=== PATIENT | female | born 1975 | race Caucasian/White ===

== ENCOUNTER → 2016-05-26 10:58 | Outpatient (CLI) | payer MEDICAID ==
[2016-01-18 09:17] VITALS: BMI 27.8
[~2016-05-26 10:58] MED LIST: ADDERALL 20 MG20 M1 PO; ADVIL PM CAPLET1 TAB PO; AMBIEN10 MG PO; DESERYL100 MG PO; HYDROCODONE-APA1 TAB PO; KLONOPIN1 MG PO; LEVAQUIN500 MG PO; MELATONIN 3 MG1 TAB PO; NICODERM C1 PATCH .2 TRANSDERM; OMEPRAZOLE40 MG PO; PERCOCET 10/3251 TA1 PO; PROZAC20 MG PO; XANAX1 MG PO
[2016-05-26 11:08] LABS: HCG SERUM NEGATIVE (NEGATIVE); HCG URINE NEGATIVE (NEGATIVE)
== END | disposition home or self-care (01) ==
LOC: D.LABREF 10:58
PROVIDERS: Internal Medicine Hematology & Oncology
DX: Z32.00 Encounter for pregnancy test, result unknown (principal)

== ENCOUNTER 2016-10-12 14:24 | Emergency (ER) | payer MEDICAID ==
[2016-01-18 09:17] VITALS: BMI 27.8
[2016-10-12 15:04] LABS: BASOPHILS 0.3 % (0-2); EOSINOPHILS 1.1 % (0-7); HEMATOCRIT 39.5 % (36.0-48.0); HEMOGLOBIN 13.5 g/dL (12-16); IMMATURE GRANULOCYTES 0.3 % (0-5); LYMPHOCYTES 15.8 % (15-50); MCH 31.5 pg (26.0-34.0); MCHC 34.2 g/dL (31.0-37.0); MCV 92.3 fL (80.0-100.0); MEAN PLATELET VOLUME 9.6 fL (7.4-10.4); MONOCYTES 8.7 % (2-11); NEUTROPHILS 73.8 % (40-80); PLATELET COUNT 226 10x3/uL (130-400); RBC 4.28 10x6/uL (4.00-5.40); RDW 12.6 % (11.5-14.5); WBC 7.5 10x3/uL (4.8-10.8)
[2016-10-12 15:12] LABS: APPEARANCE CLOUDY (CLEAR); BILIRUBIN NEGATIVE (NEGATIVE); COLOR DK YELLOW (YELLOW); GLUCOSE NEGATIVE (NEGATIVE); KETONE NEGATIVE (NEGATIVE); LEUKOCYTE ESTERASE NEGATIVE (NEGATIVE); NITRITE NEGATIVE (NEGATIVE); PROTEIN NEGATIVE (NEGATIVE); UROBILINOGEN NORMAL (NORMAL)
[2016-10-12 15:18] LABS: UDS - AMPHET NEGATIVE QUAL (NEGATIVE); UDS - BARB NEGATIVE QUAL (NEGATIVE); UDS - BENZO POSITIVE QUAL (NEGATIVE); UDS - COCAINE NEGATIVE QUAL (NEGATIVE); UDS - METH NEGATIVE QUAL (NEGATIVE); UDS - OPIATE NEGATIVE QUAL (NEGATIVE); UDS - PCP NEGATIVE QUAL (NEGATIVE); UDS - THC POSITIVE QUAL (NEGATIVE)
[2016-10-12 15:19] LABS: ALBUMIN 4.1 g/dL (3.4-5.0); ANION GAP 14.2 mmol/L (8-16); BILIRUBIN - TOTAL 0.3 mg/dL (0.2-1.3); CALCIUM 9.3 mg/dL (8.5-10.1); CARBON DIOXIDE 28.4 mmol/L (21.0-32.0); CREATININE - SERUM 1.2 mg/dL (0.6-1.3); POTASSIUM - SERUM 3.6 mmol/L (3.5-5.1); PROTEIN - SERUM 7.7 g/dL (6.4-8.2)
== END 2016-10-12 17:04 | disposition home or self-care (01) ==
LOC: D.ER 14:24
PROVIDERS: Emergency Medicine
DX: Z86.59 Personal history of other mental and behavioral disorders (principal); Z85.118 Personal history of other malignant neoplasm of bronchus and lung; F17.200 Nicotine dependence, unspecified, uncomplicated

== ENCOUNTER 2016-10-14 08:23 | Emergency (ER) | payer MEDICAID ==
[2016-01-18 09:17] VITALS: BMI 27.8
[2016-10-14 08:56] LABS: BASOPHILS 0.2 % (0-2); EOSINOPHILS 2.3 % (0-7); HEMATOCRIT 35.8 % (36.0-48.0); HEMOGLOBIN 12.1 g/dL (12-16); IMMATURE GRANULOCYTES 0.2 % (0-5); LYMPHOCYTES 21.2 % (15-50); MCH 31.3 pg (26.0-34.0); MCHC 33.8 g/dL (31.0-37.0); MCV 92.7 fL (80.0-100.0); MONOCYTES 7.5 % (2-11); NEUTROPHILS 68.6 % (40-80); PLATELET COUNT 191 10x3/uL (130-400); RBC 3.86 10x6/uL (4.00-5.40); RDW 12.7 % (11.5-14.5)
[2016-10-14 09:07] LABS: WBC 4.8 10x3/uL (4.8-10.8)
[2016-10-14 09:15] LABS: ALBUMIN 3.8 g/dL (3.4-5.0); ANION GAP 12.6 mmol/L (8-16); BILIRUBIN - TOTAL 0.21 mg/dL (0.2-1.3); CARBON DIOXIDE 26.5 mmol/L (21.0-32.0); CREATININE - SERUM 0.9 mg/dL (0.6-1.3); POTASSIUM - SERUM 4.1 mmol/L (3.5-5.1); PROTEIN - SERUM 7.3 g/dL (6.4-8.2)
== END 2016-10-14 13:01 | disposition home or self-care (01) ==
LOC: D.ER 08:23
PROVIDERS: Family Medicine
DX: S06.0X0A Concussion without loss of consciousness, initial encounter (principal); X58.XXXA Exposure to other specified factors, initial encounter; Y93.89 Activity, other specified; Y92.89 Other specified places as the place of occurrence of the external cause

== ENCOUNTER 2017-08-06 07:05 | Day surgery (SDC) | payer MEDICAID ==
[2017-08-04 16:30] LABS: BASOPHILS 0.3 % (0-2); EOSINOPHILS 1.2 % (0-7); HEMATOCRIT 37.7 % (36.0-48.0); HEMOGLOBIN 12.6 g/dL (12-16); IMMATURE GRANULOCYTES 0.1 % (0-5); LYMPHOCYTES 18.3 % (15-50); MCH 30.8 pg (26.0-34.0); MCHC 33.4 g/dL (31.0-37.0); MCV 92.2 fL (80.0-100.0); MEAN PLATELET VOLUME 9.9 fL (7.4-10.4); NEUTROPHILS 75.1 % (40-80); RBC 4.09 10x6/uL (4.00-5.40); RDW 12.8 % (11.5-14.5); WBC 7.2 10x3/uL (4.8-10.8)
[2017-08-04 16:33] LABS: PLATELET COUNT 249 10x3/uL (130-400)
[~2017-08-06] VITALS: Ht 152.4 cm; Wt 70.3 kg
--- NOTE | ~2017-08-06 | OP ---
PATIENT NAME: KATHLEEN MENDOZA MEDICAL RECORD: [id number] :71 LOCATION:D.OPS ADMISSION DATE: SURGEON: MEG SAL MD DATE OF OPERATION: 08/06/2017 PREOPERATIVE DIAGNOSES: Menorrhagia and fibroids. POSTOPERATIVE DIAGNOSES: Menorrhagia and fibroids. PROCEDURE: Hysteroscopy, D&C. SURGEON: Meg Sal MD ESTIMATED BLOOD LOSS: Minimal. INTRAVENOUS FLUIDS: Per anesthesia record. ANESTHESIA: General. HYSTEROSCOPIC FLUID LOSS: Less than 100 cc of 0.9 normal saline. SPECIMENS: Endometrial curettings. COMPLICATIONS: None apparent. FINDINGS: 1. Enlarged endometrial cavity with proliferative appearing endometrium. 2. Grossly normal appearing cervix and external genitalia. PROCEDURE: The patient taken to the operating room where general anesthesia was achieved without difficulty. The patient was then prepped and draped in normal sterile fashion in the dorsal lithotomy position in the [facility]. At this point, a Graves speculum was placed in the vagina and the cervix was identified, grasped on its anterior lip with a single-tooth tenaculum. Uterus was sounded to approximately 9-1/2 cm. At this point, the cervix was dilated to approximately 6 mm, at which point, the hysteroscope was introduced into the cervix. Survey of the endometrial canal was performed followed by curettage of all 4 quadrants of the uterus. The specimen was sent to pathology. The tenaculum was removed followed by the speculum. The patient tolerated the procedure well and was transferred to postanesthesia recovery stable without incident. TRANSINT:[id number] Voice Confirmation ID: [id number] DOCUMENT ID: [id number] MEG SAL MD at 1844 CC: [id number] DICTATION DATE: 08/07/172057 SENIOR APPLICATIONS ENGINEER: 08/07/17 2214 [facility] 08/06/[address] [address]
[~2017-08-06 07:05] MED LIST changes: +CHANTIX0.5 MG PO
[2017-08-06 08:14] LABS: APTT 32.2 SECONDS (22.8-39.4); INR 0.98 (0.85-1.17); PROTIME 12.6 SECONDS (11.6-15.0)
[2017-08-06 08:37] VITALS: BP 112/79; Ht 152.4 cm; Wt 70.3 kg
[2017-08-06 09:15] LABS: HCG URINE NEGATIVE (NEGATIVE)
== END 2017-08-06 13:00 | disposition home or self-care (01) ==
LOC: D.OPS 07:05 → D.PAN 10:30 → D.OPS 10:30
PROVIDERS: Obstetrics & Gynecology
DX: N92.0 Excessive and frequent menstruation with regular cycle (principal); D25.9 Leiomyoma of uterus, unspecified; Z01.812 Encounter for preprocedural laboratory examination

== ENCOUNTER → 2018-06-10 09:10 | Outpatient (CLI) | payer MEDICARE, MEDICAID ==
[2017-08-06 08:37] VITALS: BMI 31.5
== END | disposition home or self-care (01) ==
LOC: D.CT 09:10
PROVIDERS: ATTEND Internal Medicine Hematology & Oncology
DX: C34.12 Malignant neoplasm of upper lobe, left bronchus or lung (principal)

== ENCOUNTER 2018-07-08 11:12 | Emergency (ER) | payer MEDICARE, MEDICAID ==
[~2018-07-08] VITALS: Ht 152.4 cm; Wt 72.7 kg
[2018-07-08 11:16] VITALS: Ht 152.4 cm; Wt 72.7 kg
[2018-07-08] MEDS ORDERED: ZOFRAN4 MG PO (11:18)
[2018-07-08] MEDS ORDERED: PERCOCET 10-321 EAC1 PO (11:18)
[2018-07-08] MEDS ORDERED: ALBUTEROL SULF8.5 GM INH ×2 (11:19→13:49)
[2018-07-08] MEDS ORDERED: BUPROPION HCL150 M1 PO (11:19)
[2018-07-08 12:39] LABS: BASOPHILS 0.3 % (0-2); EOSINOPHILS 2.6 % (0-7); HEMATOCRIT 39.2 % (36.0-48.0); HEMOGLOBIN 13.6 g/dL (12-16); IMMATURE GRANULOCYTES 0.3 % (0-5); LYMPHOCYTES 12.5 % (15-50); MCH 30.8 pg (26.0-34.0); MCHC 34.7 g/dL (31.0-37.0); MCV 88.9 fL (80.0-100.0); MEAN PLATELET VOLUME 10.2 fL (7.4-10.4); MONOCYTES 6.3 % (2-11); PLATELET COUNT 258 10x3/uL (130-400); RBC 4.41 10x6/uL (4.00-5.40); RDW 12.5 % (11.5-14.5); WBC 10.9 10x3/uL (4.8-10.8)
[2018-07-08 12:55] LABS: ALKALINE PHOSPHATASE 73 U/L (46-116); ALT (SGPT) 20 U/L (10-68); CALC OSMOLALITY 279 mosm/kg (275-300); CALCIUM 9.3 mg/dL (8.5-10.1); CARBON DIOXIDE 21.5 mmol/L (21.0-32.0); CHLORIDE - SERUM 105 mmol/L (98-107); CREATININE - SERUM 0.7 mg/dL (0.6-1.3); GLUCOSE 110 mg/dL (74-106); POTASSIUM - SERUM 3.7 mmol/L (3.5-5.1); PROTEIN - SERUM 7.4 g/dL (6.4-8.2); SODIUM 140 mmol/L (136-145); UREA NITROGEN 13 mg/dL (7-18); eGFR NON AFRICAN AMERICAN > 90 mL/min (90-120)
[2018-07-08] MEDS ORDERED: VIBRAMYCIN 100100 MG PO (13:49)
[2018-07-08 14:18] VITALS: BP 146/84
[2018-07-09] MEDS ORDERED: PHENERGAN25 M1 PO (17:36)
[2018-07-09] MEDS ORDERED: PROTONIX40 MG PO (17:36)
== END 2018-07-08 14:19 | disposition home or self-care (01) ==
LOC: D.ER 11:12
PROVIDERS: Emergency Medicine
DX: R05 Cough (principal); J40 Bronchitis, not specified as acute or chronic; Z85.118 Personal history of other malignant neoplasm of bronchus and lung

== ENCOUNTER 2018-07-09 17:31 | Observation (INO) | payer MEDICARE ==
[~2018-07-09] VITALS: Ht 152.4 cm; Wt 75.0 kg
[~2018-07-09 17:31] MED LIST changes: +ALBUTEROL SULF8.5 GM INH; +BUPROPION HCL150 M1 PO; +PERCOCET 10-321 EAC1 PO; +VIBRAMYCIN 100100 MG PO; +ZOFRAN4 MG PO
[2018-07-09 17:34] VITALS: BP 94/74; Ht 152.4 cm; Wt 75.0 kg
[2018-07-09] MEDS ORDERED: PROTONIX40 MG PO (17:36)
[2018-07-09] MEDS ORDERED: PHENERGAN25 M1 PO (17:36)
--- NOTE | 2018-07-09 17:45 | NUR ---
CLONAZEPAM BOTTLE WITH PATIENT FILLED FOR NINETY (90) PILLS YESTERDAY (07/08/18) CURRENT COUNT IS 34 PILLS.
[2018-07-09 17:53] LABS: BASOPHILS 0.4 % (0-2); EOSINOPHILS 2.7 % (0-7); HEMATOCRIT 39.4 % (36.0-48.0); HEMOGLOBIN 13.6 g/dL (12-16); IMMATURE GRANULOCYTES 0.3 % (0-5); LYMPHOCYTES 19.3 % (15-50); MCHC 34.5 g/dL (31.0-37.0); MCV 89.7 fL (80.0-100.0); MEAN PLATELET VOLUME 10.6 fL (7.4-10.4); MONOCYTES 6.5 % (2-11); NEUTROPHILS 70.8 % (40-80); PLATELET COUNT 261 10x3/uL (130-400); RBC 4.39 10x6/uL (4.00-5.40); RDW 12.6 % (11.5-14.5); WBC 9.9 10x3/uL (4.8-10.8)
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
--- NOTE | 2018-07-09 18:03 | NUR ---
PATIENT'S SPOUSE IS IN THE WAITING ROOM AND STATES HE WANTS HIS MEDICATION. HIS ID WAS CHECKED AND VERIFIED AGAINST THE BOTTLE AND HE WAS GIVEN HIS PRESCRIPTION BACK.
[2018-07-09 18:08] LABS: ALBUMIN 3.8 g/dL (3.4-5.0); ALKALINE PHOSPHATASE 72 U/L (46-116); ALT (SGPT) 19 U/L (10-68); BILIRUBIN - TOTAL 0.24 mg/dL (0.2-1.3); CALC OSMOLALITY 283 mosm/kg (275-300); CALCIUM 9.1 mg/dL (8.5-10.1); CARBON DIOXIDE 24.8 mmol/L (21.0-32.0); CHLORIDE - SERUM 105 mmol/L (98-107); CREATININE - SERUM 0.7 mg/dL (0.6-1.3); GLUCOSE 108 mg/dL (74-106); POTASSIUM - SERUM 3.6 mmol/L (3.5-5.1); PROTEIN - SERUM 7.2 g/dL (6.4-8.2); SODIUM 141 mmol/L (136-145); eGFR NON AFRICAN AMERICAN > 90 mL/min (90-120)
[2018-07-09 18:09] LABS: UREA NITROGEN 18 mg/dL (7-18)
--- NOTE | 2018-07-09 18:53 | NUR ---
DR. DEVINE NOTIFIED OF PATIENTS BEHAVIOR AND ASSESSMENT RESULTS. PT IS A LOW RISK PER . DR. DEVINE STATED TO GIVE RESOURCES TO PT AT THE TIME OF DISCHARGE. NO FURTHER ORDERS GIVEN AT THIS TIME. RESOURCES REVIEWED WITH PT AND SHE VERBALIZED UNDERSTANDING. PT STATED "I SURVIVED CANCER. WHY WOULD I WANT TO ? I HAVE ALL KIND OF PAIN MEDICATION IF I WANTED TO KILL MYSELF. I HAVE KIDS TO LIVE FOR, I HAVE MY HOUSE TO LIVE FOR, MY GRANDKIDS. I JUST WANT TO KILL MY . THATS ALL. IM NOT SUICIDAL AT ALL."
[2018-07-09 18:59] LABS: UDS - AMPHET NEGATIVE QUAL (NEGATIVE); UDS - BARB NEGATIVE QUAL (NEGATIVE); UDS - BENZO POSITIVE QUAL (NEGATIVE); UDS - COCAINE NEGATIVE QUAL (NEGATIVE); UDS - OPIATE NEGATIVE QUAL (NEGATIVE); UDS - PCP NEGATIVE QUAL (NEGATIVE); UDS - THC NEGATIVE QUAL (NEGATIVE)
[2018-07-09 19:02] LABS: HCG URINE NEGATIVE (NEGATIVE)
[2018-07-09 19:03] LABS: APPEARANCE CLEAR (CLEAR); BILIRUBIN NEGATIVE (NEGATIVE); COLOR YELLOW (YELLOW); GLUCOSE NEGATIVE (NEGATIVE); KETONE NEGATIVE (NEGATIVE); NITRITE NEGATIVE (NEGATIVE); PROTEIN NEGATIVE (NEGATIVE); UROBILINOGEN NORMAL (NORMAL)
[2018-07-09 19:04] LABS: BACTERIA FEW /hpf (NONE SEEN); EPITHELIAL CELLS OCC /hpf (0-5); MUCUS <1+ /lpf (NONE SEEN); RED CELLS - URINE OCC /hpf (0-5); WHITE CELLS - URINE 0-5 /hpf (0-5)
--- NOTE | 2018-07-09 19:05 | NUR ---
BEDSIDE REPORT RECEIVED FROM CHRISTINA CHERY.
--- NOTE | 2018-07-09 19:12 | NUR ---
PT STATED SHE WANTS TO GO SMOKE A CIGARETTE, PT INFORMED SHE IS NOT ALLOWED TO GO OUTSIDE THE FACILITY TO SMOKE BUT I COULD REQUEST AN ORDER FOR A NICOTINE PATCH FROM THE EDP. PT THEN BECAME AGITATED STATED SHE IS GOING TO SMOKE, PT DISCONNECTED HERSELF FROM [facility] SIGN MONITOR, PULLED OUT HER IV, GOT OUT OF BED AND STARTED WALKING TOWARD THE DOOR. WHEN ATTEMPTING TO TALK TO PT TO CALM HER DOWN AND PUT GAUZE OVER PT'S IV SITE, PT BECAME COMBATIVE WITH NURSING STAFF.
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
--- NOTE | 2018-07-09 19:44 | NUR ---
SPOKE WITH CHRISTINA GEORGE AT THE LOCAL DETENTION, SHE WAS INFORMED OF THE PATIENT CONDITION AND QUESTIONED ABOUT THE ABILITY TO MONITOR AND SHE HAS THE CAPABILITY. DR ADAME ALSO SPOKE WITH HER AND INFORMED HER TO SEND THE PATIENT BACK TO THE ED IF SHE DEVELOPED EMERGENT SIGNS OF DISTRESS.
== END 2018-07-09 22:00 ==
LOC: D.ER 17:31 → D.ICU 19:11 → OBSVTIME 19:11 → D.ICU 19:11
PROVIDERS: Family Medicine; ADMIT Emergency Medicine; ATTEND Emergency Medicine
DX: T42.4X2A Poisoning by benzodiazepines, intentional self-harm, initial encounter (principal); R45.850 Homicidal ideations; K21.9 Gastro-esophageal reflux disease without esophagitis; F17.200 Nicotine dependence, unspecified, uncomplicated

== ENCOUNTER 2018-08-10 21:28 | Observation (INO) | payer MEDICARE ==
[~2018-08-10] VITALS: Ht 152.4 cm; Wt 77.3 kg
[~2018-08-10 21:28] MED LIST changes: +PHENERGAN25 M1 PO; +PROTONIX40 MG PO
[2018-08-10 22:08] LABS: BASOPHILS 0.3 % (0-2); EOSINOPHILS 1.3 % (0-7); HEMOGLOBIN 13.1 g/dL (12-16); IMMATURE GRANULOCYTES 0.3 % (0-5); LYMPHOCYTES 17.2 % (15-50); MCH 31.1 pg (26.0-34.0); MCHC 35.4 g/dL (31.0-37.0); MCV 87.9 fL (80.0-100.0); MEAN PLATELET VOLUME 9.9 fL (7.4-10.4); MONOCYTES 7.3 % (2-11); NEUTROPHILS 73.6 % (40-80); PLATELET COUNT 250 10x3/uL (130-400); RBC 4.21 10x6/uL (4.00-5.40); RDW 12.7 % (11.5-14.5); WBC 7.7 10x3/uL (4.8-10.8)
[2018-08-10 22:28] LABS: APTT 34.7 SECONDS (22.8-39.4); INR 1.05 (0.85-1.17); PROTIME 13.2 SECONDS (11.6-15.0)
[2018-08-10 22:36] LABS: ALBUMIN 3.8 g/dL (3.4-5.0); ALKALINE PHOSPHATASE 68 U/L (46-116); ALT (SGPT) 18 U/L (10-68); BILIRUBIN - TOTAL 0.24 mg/dL (0.2-1.3); CALC OSMOLALITY 279 mosm/kg (275-300); CALCIUM 8.9 mg/dL (8.5-10.1); CARBON DIOXIDE 21.4 mmol/L (21.0-32.0); CHLORIDE - SERUM 105 mmol/L (98-107); CREATININE - SERUM 0.8 mg/dL (0.6-1.3); GLUCOSE 99 mg/dL (74-106); POTASSIUM - SERUM 3.7 mmol/L (3.5-5.1); PROTEIN - SERUM 7.2 g/dL (6.4-8.2); SODIUM 141 mmol/L (136-145); UREA NITROGEN 11 mg/dL (7-18); eGFR NON AFRICAN AMERICAN 82 mL/min (90-120)
[2018-08-10 22:46] LABS: CKMB 0.7 U/L (0.0-3.6); CREATINE KINASE 110 UL (21-215); MAGNESIUM - SERUM 1.7 mg/dL (1.8-2.4)
[2018-08-10 22:54] LABS: TROPONIN-I < 0.017 ng/mL (0.000-0.060)
--- NOTE | 2018-08-10 23:38 | NUR ---
C-COLLAR CLEARED FROM REMOVAL. SANDWICH AND DRINK GIVEN TO PT.
--- NOTE | 2018-08-11 00:10 | NUR ---
URINE SENT WITH Barbara FROM LAB TO LAB
[2018-08-11 01:21] LABS: APPEARANCE CLEAR (CLEAR); BILIRUBIN NEGATIVE (NEGATIVE); COLOR YELLOW (YELLOW); GLUCOSE NEGATIVE (NEGATIVE); KETONE NEGATIVE (NEGATIVE); NITRITE NEGATIVE (NEGATIVE); PROTEIN NEGATIVE (NEGATIVE); SPECIFIC GRAVITY 1.015 (1.005-1.020); UROBILINOGEN NORMAL (NORMAL)
[2018-08-11 01:23] LABS: HCG URINE NEGATIVE (NEGATIVE)
[2018-08-11 01:34] LABS: UDS - AMPHET NEGATIVE QUAL (NEGATIVE); UDS - BARB NEGATIVE QUAL (NEGATIVE); UDS - BENZO NEGATIVE QUAL (NEGATIVE); UDS - COCAINE NEGATIVE QUAL (NEGATIVE); UDS - OPIATE NEGATIVE QUAL (NEGATIVE); UDS - PCP NEGATIVE QUAL (NEGATIVE); UDS - THC POSITIVE QUAL (NEGATIVE)
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
--- NOTE | 2018-08-11 02:46 | NUR ---
NS STOPPED WHEN PT TAKEN TO ROOM AT 0230
[2018-08-11 03:04] VITALS: BP 114/78; Ht 152.4 cm; Wt 77.3 kg
[2018-08-11 04:55] LABS: BASOPHILS 0.3 % (0-2); EOSINOPHILS 1.5 % (0-7); HEMOGLOBIN 12.5 g/dL (12-16); IMMATURE GRANULOCYTES 0.3 % (0-5); MCH 30.7 pg (26.0-34.0); MCHC 34.7 g/dL (31.0-37.0); MCV 88.5 fL (80.0-100.0); MEAN PLATELET VOLUME 10.6 fL (7.4-10.4); MONOCYTES 6.8 % (2-11); NEUTROPHILS 73.1 % (40-80); PLATELET COUNT 270 10x3/uL (130-400); RBC 4.07 10x6/uL (4.00-5.40); RDW 12.8 % (11.5-14.5)
[2018-08-11 05:01] LABS: WBC 11.2 10x3/uL (4.8-10.8)
[2018-08-11 05:10] LABS: ALBUMIN 3.6 g/dL (3.4-5.0); ALKALINE PHOSPHATASE 66 U/L (46-116); ALT (SGPT) 17 U/L (10-68); BILIRUBIN - TOTAL 0.28 mg/dL (0.2-1.3); CALC OSMOLALITY 281 mosm/kg (275-300); CALCIUM 8.6 mg/dL (8.5-10.1); CARBON DIOXIDE 25.9 mmol/L (21.0-32.0); CHLORIDE - SERUM 106 mmol/L (98-107); CREATININE - SERUM 0.8 mg/dL (0.6-1.3); GLUCOSE 99 mg/dL (74-106); POTASSIUM - SERUM 3.6 mmol/L (3.5-5.1); PROTEIN - SERUM 6.7 g/dL (6.4-8.2); SODIUM 142 mmol/L (136-145); UREA NITROGEN 11 mg/dL (7-18); eGFR NON AFRICAN AMERICAN 82 mL/min (90-120)
--- NOTE | 2018-08-11 07:46 | NUR ---
ALERT AND ORIENTED X 3. LUNGS CLEAR BILATERALLY IN ALL RENE. HEART SOUNDS S1 AND S2 HEARD IN ALL RENE. BOWEL SOUNDS ACTIVE X 4. SKIN INTACT WITHOUT REDNESS. BRUISING NOTED TO RIGHT EYE FROM FALL PRIOR TO ADMISSION. IV TO LEFT AC PATENT WITHOUT RENESS. REQUESTS PRN PAIN MEDICATION BUT NOT DUE UNTI 0830. EDUCATION PROVIDED. PATIENT VERBALIZED UNDERSTANDING. REQUESTED AND GIVEN ORANGE JUICE. DENIES FURTHER NEEDS. BED LOW. CALL KITCHEN AND PERSONAL ITEMS IN REACH. WILL CONTINUE TO MONITOR.
[2018-08-11 09:36] VITALS: BP 89/61
--- NOTE | 2018-08-11 12:33 | NUR ---
SITTING IN BED EATING LUNCH. DENIES NEEDS.
[2018-08-11 13:04] VITALS: BP 98/66
--- NOTE | 2018-08-11 15:00 | NUR ---
PATIENT LEFT FLOOR.
--- NOTE | 2018-08-11 15:58 | NUR ---
RETURNED TO ROOM .
[2018-08-11 17:43] VITALS: BP 110/65
--- NOTE | 2018-08-11 18:18 | NUR ---
RESTING IN BED. FAMILY AT BEDSIDE. DENIES NEEDS. BED LOW. CALL KITCHEN AND PERSONAL ITEMS IN REACH. WILL CONTINUE TO MONITOR.
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
[2018-08-11 21:00] VITALS: BP 118/61
[2018-08-12 00:46] VITALS: BP 122/68
--- NOTE | 2018-08-12 04:13 | NUR ---
I have reviewed this patient and I concur with the Shift Assessment completed by the Licensed Practical Nurse today this shift.
[2018-08-12 05:06] VITALS: BP 124/54
[2018-08-12 06:10] LABS: ANION GAP 10.6 mmol/L (8-16); CALCIUM 7.8 mg/dL (8.5-10.1); CARBON DIOXIDE 25.4 mmol/L (21.0-32.0); CREATININE - SERUM 0.9 mg/dL (0.6-1.3)
[2018-08-12 06:13] LABS: BASOPHILS 0.4 % (0-2); EOSINOPHILS 4.3 % (0-7); HEMATOCRIT 33.1 % (36.0-48.0); HEMOGLOBIN 10.8 g/dL (12-16); IMMATURE GRANULOCYTES 0.1 % (0-5); LYMPHOCYTES 29.2 % (15-50); MCH 29.7 pg (26.0-34.0); MCHC 32.6 g/dL (31.0-37.0); MEAN PLATELET VOLUME 10.4 fL (7.4-10.4); MONOCYTES 8.4 % (2-11); NEUTROPHILS 57.6 % (40-80); PLATELET COUNT 244 10x3/uL (130-400); RBC 3.64 10x6/uL (4.00-5.40); RDW 12.9 % (11.5-14.5)
[2018-08-12 06:31] LABS: MCV 90.9 fL (80.0-100.0); WBC 7.3 10x3/uL (4.8-10.8)
--- NOTE | 2018-08-12 07:38 | NUR ---
RESTING IN BED. ALERT AND ORIENTED X 3. LUNGS CLEAR BILATERALLY IN ALL RENE. HEART SOUNDS S1 AND S2 HEARD IN ALL RENE. BOWEL SOUNDS ACTIVE X 4. SKIN INTACT WITHOUT REDNESS. BRUISING NOTED TO RIGHT EYE FROM FALL PRIOR TO ADMISSION. DENIES NEEDS. BED LOW. CALL KITCHEN AND PERSONAL ITEMS IN REACH. WILL CONTINUE TO MONITOR.
[2018-08-12 08:30] VITALS: BP 133/80
--- NOTE | 2018-08-12 09:51 | NUR ---
DISCHARGE EDUCATION PROVIDED BOTH WRITTEN AND VERBAL. VERBALIZED UNDERSTANDING. DENIES FURTHER QUESTIONS. IV REMOVED FROM LEFT AC WITH TIP INTACT. DISCHARGED HOME WITH WITH ALL BELONGINGS.
== END 2018-08-12 09:58 | disposition home or self-care (01) ==
LOC: D.ER 21:28 → OBSVTIME 08-11 00:54 → D.MS 08-11 00:54
PROVIDERS: Family Medicine; ADMIT Internal Medicine Nephrology; ATTEND Internal Medicine Nephrology
DX: R56.9 Unspecified convulsions (principal); W19.XXXA Unspecified fall, initial encounter; F10.129 Alcohol abuse with intoxication, unspecified; Z85.118 Personal history of other malignant neoplasm of bronchus and lung; F17.203 Nicotine dependence unspecified, with withdrawal; S06.0X0A Concussion without loss of consciousness, initial encounter

== ENCOUNTER 2019-01-13 23:00 | Outpatient (CLI) | payer MEDICARE ==
[2018-08-11 03:04] VITALS: BMI 33.2
== END 2019-01-13 23:59 | disposition home or self-care (01) ==
LOC: D.MAMMO 23:00
PROVIDERS: ATTEND Family Medicine
DX: N63.21 Unspecified lump in the left breast, upper outer quadrant (principal)

== ENCOUNTER 2019-03-06 13:26 | Emergency (ER) | payer MEDICARE ==
[~2019-03-06] VITALS: Ht 152.4 cm; Wt 71.8 kg
[2019-03-06 13:34] VITALS: Ht 152.4 cm; Wt 71.8 kg
[2019-03-06] MEDS ORDERED: CLEOCIN HCL300 MG PO (14:30)
[2019-03-06] MEDS ORDERED: VOLTAREN75 MG PO (14:30)
[2019-03-06 14:48] VITALS: BP 114/82
== END 2019-03-06 14:53 | disposition home or self-care (01) ==
LOC: D.ER 13:26
DX: K04.7 Periapical abscess without sinus (principal); K08.89 Other specified disorders of teeth and supporting structures; Z72.0 Tobacco use; K21.9 Gastro-esophageal reflux disease without esophagitis; Z85.118 Personal history of other malignant neoplasm of bronchus and lung

== ENCOUNTER → 2019-11-04 11:37 | Outpatient (CLI) | payer MEDICARE ==
[2019-03-06 13:34] VITALS: BMI 30.9
[~2019-11-04 11:37] MED LIST changes: +CLEOCIN HCL300 MG PO; +VOLTAREN75 MG PO
== END | disposition home or self-care (01) ==
LOC: D.CT 09-19 11:00
PROVIDERS: ATTEND Internal Medicine Hematology & Oncology
DX: C34.12 Malignant neoplasm of upper lobe, left bronchus or lung (principal)